=== PATIENT | male | born 1985 | race Two or more races ===

== ENCOUNTER 2024-01-18 20:45 | Inpatient (IN) | payer MEDICAID, OTHER ==
[~2024-01-18] VITALS: Ht 167.6 cm; Wt 102.0 kg
[2024-01-18 21:29] LABS: Basophils # (auto) 0.1 10 ^3/uL (0-0.2); Basophils % (auto) 0.7 % (0.0-2.0); Eosinophils # (auto) 0.3 10 ^3/uL (0-0.8); Eosinophils % (auto) 2.8 % (0.0-7.0); Hematocrit 45.2 % (41.0-53.0); Hemoglobin 15.8 g/dL (13.5-17.5); Lymphocytes # (auto) 4.3 10 ^3/uL (0.4-5.4); Mean Corpuscular Hemoglobin 31.7 pg (28.0-32.0); Mean Corpuscular Hgb Conc. 34.9 g/dL (32.0-36.0); Mean Corpuscular Volume 91.1 fL (80.0-100.0); Monocytes # (auto) 1.1 10 ^3/uL (0-1.3); Monocytes % (auto) 10.4 % (0.0-12.0); Neutrophils % (auto) 46.1 % (37.0-80.0); Platelet Count (auto) 244 10^3/uL (140-450); Red Blood Cells 4.97 10^6/uL (4.5-5.90); Red Cell Distribution Width 13.5 % (11.8-14.3); White Blood Cell 10.8 10^3/uL (4.4-10.8)
[2024-01-18 21:38] LABS: Chloride 109 mmol/L (98-107); Potassium 3.9 mmol/L (3.5-5.1); Sodium 141 mmol/L (136-145)
[2024-01-18 21:39] LABS: Anion Gap 8 (5-15); Calcium 9.7 mg/dL (8.7-10.4); Carbon Dioxide 24 mmol/L (20-30)
[2024-01-18 21:44] LABS: BUN/Creatinine Ratio 9.2 (10.0-20.0); Blood Urea Nitrogen 9 mg/dL (9-23); Glucose 99 mg/dL (74-106)
[2024-01-18] MEDS: SODIUM CHLORIDE 0.9% 1,000 ML IV ONE (22:29)
[2024-01-18] MEDS: ONDANSETRON HCL 4 MG/2 ML VIAL IV ONE (22:29)
[2024-01-19] MEDS: IOHEXOL 300 MG/ML 100ML BOTTLE IJ ONE (00:57)
[2024-01-19] MEDS ORDERED: ONDANSETRON HCL 4 MG/2 ML VIAL IV PRN (03:15)
[2024-01-19] MEDS ORDERED: TEMAZEPAM 15 MG CAP PO PRN (03:15)
[2024-01-19 08:37] VITALS: PULSE 53; O2SAT 98
[2024-01-19] MEDS: LISINOPRIL 5 MG TAB PO SCH (10:26)
[2024-01-19 17:08] LABS: Urine Bacteria None Seen /hpf (None Seen)
[2024-01-19 17:22] LABS: Urine Blood Negative /uL (Negative); Urine Clarity Clear (Clear); Urine Color Light-Yellow (Yellow); Urine Protein, UAD Negative (Negative); Urine Specific Gravity 1.027 (1.001-1.035); Urine Urobilinogen Normal (Negative); Urine WBC 1 /hpf (0 - 3); Urine pH 5.5 (5.0-9.0)
[2024-01-19 20:13] VITALS: PULSE 52; RESP 16; O2SAT 96
[2024-01-19] MEDS: ACETAMINOPHEN 325 MG TAB PO PRN (20:44)
[2024-01-19 23:29] VITALS: BP 118/69; PULSE 60; RESP 18; TEMP 98; O2SAT 95
[2024-01-20] VITALS (8 sets, daily range): BP systolic 116–135; BP diastolic 59–69; PULSE 48–64; RESP 16–19; TEMP 97.3–98.2; O2SAT 93–98
[2024-01-20] MEDS ORDERED: LISI-275 PO (01:31)
[2024-01-20] MEDS: MECLIZINE HCL 25 MG TAB PO PRN (10:49)
[2024-01-21 01:00] VITALS: BP 124/62; PULSE 54; RESP 18; TEMP 97.7; O2SAT 96
[2024-01-21 05:00] VITALS: BP 110/69; PULSE 51; RESP 18; TEMP 97.4; O2SAT 96
[2024-01-21 09:00] VITALS: BP 128/73; PULSE 52; RESP 16; TEMP 97.5; O2SAT 98
[2024-01-21 13:00] VITALS: BP 132/69; PULSE 61; RESP 18; TEMP 98; O2SAT 100
[2024-01-21] MEDS ORDERED: MECL-90 PO (14:39)
[2024-01-21 16:41] VITALS: BP 128/78; PULSE 66; RESP 18; TEMP 98.7; O2SAT 95
[2024-01-21 17:09] VITALS: BP 128/73; TEMP 37.1
== END 2024-01-21 18:20 | disposition home or self-care (01) | DRG 199 ==
LOC: ER 20:45 → WEST WING 01-19 03:04 → OVERFLOW 01-19 03:04 → WEST WING 01-19 22:43
PROVIDERS: ADMIT Nurse Practitioner; ATTEND Internal Medicine
DX: I16.0 Hypertensive urgency (principal); E66.9 Obesity, unspecified; R42 Dizziness and giddiness; I10 Essential (primary) hypertension; Z68.36 Body mass index [BMI] 36.0-36.9, adult
CPT/HCPCS: 36415; 70496; 70551; 71046; 80048; 81001; 84484; 85025; 93005; G0378